=== PATIENT | male | born 1955 | race Caucasian/White ===

== ENCOUNTER 2025-08-01 10:31 | Emergency (ER) | payer MEDICARE, SELFPAY ==
[2025-08-01] VITALS (12 sets, daily range): BP systolic 104–157; BP diastolic 34–50; BMI 17.4
[2025-08-01 11:32] LABS: Hematocrit 44.3 % (39.0-52.0); Hemoglobin 15.7 g/dL (13.0-18.0); Mean Corp Hgb Conc. 35.4 g/dL (33.0-37.0); Mean Corpuscular Volume 101.1 fL (80.0-94.0); Nucleated Red Blood Cells % 0.1 % (-); Platelet Count 244 10^3/uL (130-400); Red Cell Dist. Width 15.6 % (11.5-14.5)
--- NOTE | 2025-08-01 11:34 | ED.GENMED ---
History of Present Illness
General
Chief Complaint: Weakness
Source: patient
Exam Limitations: none
Time Seen by Provider: 08/01/25 11:19
Nursing documentation reviewed up to this point in time: agreed with
History of Present Illness
History of Present Illness:
70-year-old male with a past medical history of hypertension, hyperlipidemia, ESRD status post transplant, CHF status post transplant, Crohn's disease status post colectomy with chronic ileostomy who presents to the emergency department for
evaluation of fatigue and back pain. Patient reports that he started feeling unwell about a week ago�he says that initially he thought he had food poisoning because he was having high output from his ileostomy and poor appetite. He says that
symptoms were not improving and he was having increasing fatigue and low back pain and so he came to the ER for assessment. In addition to the above symptoms he has had mild sore throat and cough and has had a hoarse voice. He has not had any
chest pain or shortness of breath. No nausea or vomiting. No objective fever or chills reported. Regarding his transplants: He says that these both occurred in 2019 at [place]. Colectomy and ileostomy he says was about 40 years ago.
Review of Systems
Review of Systems
All Other Systems: ROS reviewed and negative except as documented in HPI and ROS
Constitutional: Reports fatigue; Denies fever or chills
EENT: Reports sore throat and other (Hoarse voice)
Respiratory: Reports cough; Denies trouble breathing
Cardiac: Denies chest pain
ABD/GI: Reports abdominal pain and diarrhea (High output from ostomy); Denies nausea or vomiting
Musculoskeletal: Reports back pain; Denies neck pain
Neurological: Reports weakness (Generalized); Denies dizzy, headache or numbness
Phy Exam
Physical Exam
Physical Exam:
General: Awake, alert; somewhat cachectic and chronically ill-appearing but not acutely in distress
Head: Normocephalic, atraumatic
Eyes: Conjunctiva normal, sclera anicteric
Throat: Airway intact, handling secretions
Neck: Trachea midline, supple without meningismus
Lungs: Clear to auscultation bilaterally, no wheezing, rales, rhonchi
Heart: Regular rate and rhythm, no murmurs, gallops, or rubs appreciated
Abd: Soft, non distended, mild lower abdominal tenderness, ileostomy noted
Back: No reproducible tenderness in the back or flank
Neuro: Grossly intact
Skin: Warm and dry
Extremities: No edema in extremities, warm and well-perfused
Scores
Heart Failure Risk
Heart Failure Risk Score: Not Applicable
Heart Score for Chest Pain Patients
STEMI patient?: Not applicable
Withdrawal Assessment of Alcohol
Withdrawal Assessment Completed?: Not applicable
Course
Orders/Labs/Results
Orders:
Orders
08/01/25 11:24
IV Insert/Care/Rem.- Treatment PRN
Urinalysis Reflex To Culture Urgent
Date Specimen was Collected: 08/01/25
Time Specimen was Collected: 11:24
08/01/25 11:25
Complete Blood Count/With Diff Urgent
Comprehensive Metabolic Panel Urgent
Lipase Urgent
08/01/25 11:33
Morphine Sulfate 4 mg IV NOW STA
08/01/25 11:34
0.9% Sodium Chloride 250 ml [Nss] 250 ml IV BOLUS
08/01/25 11:44
COVID-19 Antigen Urgent
Source: Nasal Swab
Lactate Level [Lactic Acid] Urgent
Blood Culture Q30M
[facility] Source: Blood/Venous
Specimen Description:
Blood Culture Q30M
[facility] Source: Blood/Venous
Specimen Description:
Influenza A+B Rapid Molecular Urgent
[facility] Source: Nasal Swab
Specimen Description:
08/01/25 11:50
Ondansetron Injectable [Zofran] 4 mg .ROUTE .[facility]
08/01/25 11:52
Ondansetron Injectable [Zofran] 4 mg IV NOW STA
08/01/25 11:56
Electrocardiogram (*1) Urgent
Reason for Study: Other
Other Reason for Exam: hyperkalemia
CT Abd/pel Without Iv Or Oral Urgent
Comment:
Reason For Exam: low back pain, abd pain, renal failure
EKG- Treatment ONCE
Albuterol Sulfate [Ventolin Nebules] 10 mg INH R NOW STA
Calcium Gluconate 1,000 mg IV NOW STA
Dextrose 50%-Water [Dextrose 50% Syringe] 12.5 grams IV NOW STA
Dextrose 50%-Water [Dextrose 50% Syringe] 12.5 grams IV [id number] PRN
Insulin Human Regular [Novolin R] 5 units IV NOW STA
Sodium Bicarbonate 50 meq IV NOW STA
Sodium Zirconium Cyclosilicate [Lokelma] 10 gram PO NOW STA
Bedside Glucose PRE IV Insulin- HyperK+ NOW
08/01/25 12:15
CR Chest Portable - 1 View Urgent
Comment:
Reason For Exam: back pain, cough
Reason Study Needs to be Portable: Unable to Transport
08/01/25 12:16
0.9% Sodium Chloride 1000 ml [Nss] 1,000 ml IV BOLUS
08/01/25 12:25
Electrocardiogram (*1) Urgent
Reason for Study: Abnormal EKG
EKG- Treatment ONCE
08/01/25 12:32
Sodium Bicarbonate 50 meq IV NOW STA
08/01/25 13:00
Dextrose 5%/Water 1000 ml [D5w] 1,000 ml Sodium Bicarbonate 150 meq IV 200 mls/hr
08/01/25 13:26
Bedside Glucose POST IV Insulin- HyperK+ Q1HX2,Q2HX2
08/01/25 14:01
Basic Metabolic Panel Urgent
Abnormal Lab Results
08/01/25 08/01/25 08/01/25
11:44 12:50
WBC 20.5 H 10^3/uL
(4.8-10.8)
RBC 4.38 L 10^6/uL
(4.70-6.10)
MCV 101.1 H fL
(80.0-94.0)
MCH 35.8 H pg
(27.0-31.0)
RDW 15.6 H %
(11.5-14.5)
MPV 10.7 H fL
(7.4-10.4)
Abs Immat Gran (auto) 0.1 H 10^3/uL
(0-0.05)
Absolute Neuts (auto) 19.2 H 10^3/uL
(1.4-6.5)
Absolute Lymphs (auto) 0.5 L 10^3/uL
(1.2-3.4)
Absolute Monos (auto) 0.7 H 10^3/uL
(0.1-0.6)
Immature Gran % 0.6 H %
(0-0.5)
Neutrophils % 93.7 H %
(42.2-75.2)
Lymphocytes % 2.4 L %
(20.5-51.1)
Sodium 129 L mmol/L
(135-145)
Potassium 7.6 H* mmol/L
(3.5-5.1)
Chloride 97 L mmol/L
(98-107)
Carbon Dioxide 9 L* mmol/L
(22-30)
BUN 104 H* mg/dl
(9-20)
Creatinine 6.7 H* mg/dL
(0.7-1.3)
Glucose 252 H mg/dl
(70-99)
Lactic Acid 3.2 H mmol/L
(0.7-2.0)
Calcium 11.0 H mg/dl
(8.4-10.2)
Total Protein 9.2 H g/dl
(6.3-8.2)
Albumin 5.6 H g/dl
(3.5-5.0)
POC Glucose 171 H mg/dl
(70-99)
08/01/25
14:01
WBC
RBC
MCV
MCH
RDW
MPV
Abs Immat Gran (auto)
Absolute Neuts (auto)
Absolute Lymphs (auto)
Absolute Monos (auto)
Immature Gran %
Neutrophils %
Lymphocytes %
Sodium 134 L mmol/L
(135-145)
Potassium 5.6 H D mmol/L
(3.5-5.1)
Chloride
Carbon Dioxide 11 L* mmol/L
(22-30)
BUN 102 H* mg/dl
(9-20)
Creatinine 5.9 H* mg/dL
(0.7-1.3)
Glucose 158 H mg/dl
(70-99)
Lactic Acid
Calcium 10.6 H mg/dl
(8.4-10.2)
Total Protein
Albumin
POC Glucose
08/01/25 11:25
08/01/25 14:01
Vital Signs
Initial and Last Documented VS:
Initial Vital Signs
Pulse Resp BP Pulse Ox
64 20 111/40 98
08/01/25 10:33 08/01/25 10:33 08/01/25 10:33 08/01/25 10:33
Last Documented Vital Signs
Temp Pulse Resp BP Pulse Ox
36.1 C 99 11 104/42 99
08/01/25 11:24 08/01/25 13:15 08/01/25 13:15 08/01/25 13:00 08/01/25 13:15
MDM/Problems Addressed
Differential Diagnosis Includes:
Diagnosis includes but not limited to viral illness/enteritis, renal failure, transplant rejection, cholelithiasis, cholecystitis, pancreatitis, urinary tract infection, nephrolithiasis
MDM/Problems Addressed:
70-year-old male with a past medical history as noted significant for prior heart and renal transplant at [place] in 2019 presents for evaluation of increasing fatigue/generalized weakness, high output from ostomy. Vital signs here fortunately are
within acceptable range. Physical exam as noted. Will plan to place an IV check labs including a CBC and CMP, urinalysis. Swab for COVID and flu. Check CT abdomen. Will provide some IV fluids, pain control. Reassess after the above.
Initial labs reviewed: CBC shows marked leukocytosis to 20.5. Chemistry shows renal failure with creatinine of 6.7, BUN 104. Anion gap metabolic acidosis with a bicarb of 9, anion gap 23. Suspect likely from acute renal failure�he does however
also have hyperglycemia will check beta hydroxybutyrate. Urinalysis is pending. He is markedly hyperkalemic with a potassium of 7.6. IV fluids are in progress. Will check stat EKG. Albuterol, IV calcium IV bicarb, IV insulin, Lokelma. Will
discuss with transplant team--patient should be transferred.
[place] they agree patient should be transferred but concerned about stability for transfer given markedly elevated potassium and significant acidosis. Agreed with measures as above but recommended holding off on
Lokelma for the time being. Also recommended after IV bicarb push to give bicarb infusion 200 cc an hour. Repeat labs in 2 hours. If potassium and bicarb are improving can work on transfer [place].
Repeat labs show improving potassium 7.6-->5.6, improving bicarb 9-->11. Glucose 158. He did have leukocytosis here with WBC of 20 but no fever, no tachycardia, negative infectious workup including chest x-ray and CT abdomen�suspect
hemoconcentration accounts for much of his symptoms and we will hold off on antibiotics at this point especially with tenuous renal function to avoid any nephrotoxicity. Suspect at this point profound hypovolemia secondary to enteritis with high
ostomy output resulting in acute renal failure. Will discuss with transfer center at [place] once again.
Patient accepted for transfer to [place] by Dr. Ware. Monitor pending a bed availability. Recommending continuing bicarb infusion at 200 cc an hour then decreased to 100 cc an hour after 1 L. Repeat labs in 4 hours. Continue to monitor closely
here pending transfer�if prolonged transfer time may need admission here pending bed availability.
Chronic conditions affecting care:
CKD, renal transplant and heart transplant
*Radiology
Radiology exam reviewed: radiology read reviewed
*Pulse Oximetry
SaO2: 98
Oxygen Mode of Delivery: Room air
Patient hypoxic: no (98%)
*EKG
Interpreted by ED Provider?: Yes
Heart Rate: 90
Rate: normal
Rhythm: sinus
Drumright: left axis deviation
QRS Pattern: other (Bifascicular block)
Ischemia: other (Peaked T waves)
*Critical Care Note
Total Time (30-74mins, 75-104mins- exclusive of procedures): 44
comment:
Critical care statement: A total of 44 minutes of critical care time was provided for this patient. This includes management of unstable vital signs, evaluation of the patient at bedside, frequent reassessment, discussion with
consultants/hospitalist, and review of pertinent medical records. This time was separate from time utilized to perform any aforementioned documented procedures
Data Reviewed
Source: patient
Patient Management
Discussion with other providers: Electronics Inspector (Discussed with transplant team at [facility])
Escalation/DeEscalation of care consider admission/obs:
Admission indicated�transfer to tertiary center
ED Attending Note
-
Portions of this chart may have been created with voice recognition software.� Occasional wrong word or��sound alike� substitutions may have occurred due to the inherent limitations of voice recognition software.
Discharge Plan
Departure
Patient Disposition: Acute Care Hospital
Date of Disposition: 08/01/25
Time of Disposition: 12:02
Discharge Problem:
Acute renal failure, Hyperkalemia
Hospital Transfer
Other hospital: [facility]
I certify that the patient requires transfer: Yes
Discussed case with accepting physician: Dr. Ware
Reason for transfer: higher level of care, availability of service and specialties available
Interventions
Interventions:
*Risk Screen - Suicide Last Done: 08/01/25 10:33
*General Assessment Last Done: 08/01/25 10:33
*Neglect/Abuse Screening Last Done: 08/01/25 10:33
*ED COVID-19 Vaccine History Last Done: 08/01/25 11:18
*ED Influenza Vaccine History Last Done: 08/01/25 11:18
[facility] Fall Risk Assessment Tool Last Done: 08/01/25 11:18
[facility] Assessment Last Done: 08/01/25 12:30
ED- Cardiac Assessment Last Done: 08/01/25 12:30
ED-Male Genitourinary Assessment Last Done: 08/01/25 12:30
ED- Neurological Assessment Last Done: 08/01/25 12:30
ED- Pulmonary Assessment Last Done: 08/01/25 12:30
Discharge Date and Time
Print Language: [id number]
[2025-08-01 11:51] LABS: ALT (SGPT) 19 U/L (0-50); AST (SGOT) 18 U/L (17-59); Albumin 5.6 g/dl (3.5-5.0); Alkaline Phosphatase 62 U/L (38-126); Blood Urea Nitrogen 104 mg/dl (9-20); Calcium 11.0 mg/dl (8.4-10.2); Carbon Dioxide 9 mmol/L (22-30); Chloride 97 mmol/L (98-107); Estimated Creatinine Clearance -3 ml/min; Glucose 252 mg/dl (70-99); Lipase 154 U/L (23-300); Potassium 7.6 mmol/L (3.5-5.1); Sodium 129 mmol/L (135-145); Total Protein 9.2 g/dl (6.3-8.2); eGFR 8.21
[2025-08-01] MEDS: ZOFRAN 4 MG IV (11:53)
[2025-08-01] MEDS: MORPHINE SULFATE 4 MG IV (11:53)
[2025-08-01] MEDS: NSS 250 IV (11:53)
[2025-08-01 12:13] LABS: COVID-19 Antigen Negative (Negative)
[2025-08-01] MEDS: CALCIUM GLUCONATE 1000 MG IV (12:14)
[2025-08-01] MEDS: VENTOLIN NEBULES 10 MG INH (12:15)
[2025-08-01] MEDS: SODIUM BICARBONATE 50 MEQ IV (12:15)
[2025-08-01] MEDS: NOVOLIN R 5 UNITS IV (12:18)
[2025-08-01] MEDS: NSS 1000 IV (12:22)
[2025-08-01 12:53] LABS: Glucose - Point of Care 171 mg/dl (70-99)
--- NOTE | 2025-08-01 13:13 | EDRN ---
Patient reports pain is better, informed him that I called our central supply to try to get a new bag for his ileostomy as it is leaking.
[2025-08-01] MEDS: SODIUM BICARBONATE 1150 MEQ IV ×2 (13:15→20:43)
--- NOTE | 2025-08-01 14:06 | WOUNDNOTE ---
[facility] RN NOTE: Patient visited for ileostomy leaking while in ER. Patient reported that he was just weak when changing his pouch this morning so it did not properly adhere. Patient reports 40 years of ileostomy due to IBD. Ostomy site is pink and
flat. Patient reports using convexity at home but did not bring extra supplies. Pouch changed with Alicia barrier # [id number] and pouch #[id number]. Plan is for patient to be transferred to [place].
[2025-08-01 14:35] LABS: Blood Urea Nitrogen 102 mg/dl (9-20); Calcium 10.6 mg/dl (8.4-10.2); Carbon Dioxide 11 mmol/L (22-30); Chloride 100 mmol/L (98-107); Estimated Creatinine Clearance 8 ml/min; Glucose 158 mg/dl (70-99); Potassium 5.6 mmol/L (3.5-5.1); Sodium 134 mmol/L (135-145); eGFR 9.56
[2025-08-01 15:27] LABS: Glucose - Point of Care 224 mg/dl (70-99)
[2025-08-01 16:58] LABS: Glucose - Point of Care 172 mg/dl (70-99)
[2025-08-01] MEDS: SODIUM BICARBONATE IV (18:59)
[2025-08-01 19:25] LABS: Glucose - Point of Care 202 mg/dl (70-99)
[2025-08-01 19:55] LABS: Blood Urea Nitrogen 115 mg/dl (9-20); Calcium 10.1 mg/dl (8.4-10.2); Carbon Dioxide 18 mmol/L (22-30); Chloride 94 mmol/L (98-107); Estimated Creatinine Clearance 9 ml/min; Glucose 204 mg/dl (70-99); Potassium 5.2 mmol/L (3.5-5.1); Sodium 130 mmol/L (135-145); eGFR 9.76
== END 2025-08-01 20:57 | disposition short-term general hospital (02) ==
LOC: EMR 10:31
PROVIDERS: Nurse Practitioner; EMERGENCY PHYSICIAN Emergency Medicine; FAMILY PHYSICIAN Nurse Practitioner Gerontology
DX: I13.2 Hypertensive heart and chronic kidney disease with heart failure and with stage 5 chronic kidney disease, or end stage renal disease (principal); N18.6 End stage renal disease; I50.9 Heart failure, unspecified; N17.9 Acute kidney failure, unspecified; E78.5 Hyperlipidemia, unspecified; K50.90 Crohn's disease, unspecified, without complications; Z94.0 Kidney transplant status; Z90.49 Acquired absence of other specified parts of digestive tract
CPT/HCPCS: 99291; 94640; 96374; 96375; 96376; 96361; 71045; 74176; 80048; 80053; 82962; 83605; 83690; 85025; 87040; 87502; 87811; 93005